=== PATIENT | male | born 1985 | race Asian ===

== ENCOUNTER 2022-05-25 16:23 | Emergency (ER) | payer SELFPAY ==
[~2022-05-25] VITALS: Ht 165.1 cm; Wt 59.0 kg
[2022-05-25] MEDS ORDERED: KETOROLAC TROMETHAMINE 30 MG/ML VIAL IV STA (16:41)
[2022-05-25] MEDS ORDERED: CYCLOBENZAPRINE HCL 10 MG TAB PO ONE (16:45)
[2022-05-25 17:05] LABS: BASOPHILS % 0.4 % (0.0-1.0); EOSINOPHILS # (AUTO) 0.1 (0.0-0.4); EOSINOPHILS % 1.5 % (0.0-6.0); HEMATOCRIT 47.3 % (38.2-49.6); HEMOGLOBIN 16.5 g/dL (14.0-18.0); LYMPHOCYTES # (AUTO) 2.9 (1.0-3.2); LYMPHOCYTES % 55.1 % (18.0-39.1); MEAN CORPUSCULAR HEMOGLOBIN 31.1 pg (28-32); MEAN CORPUSCULAR HGB CONC 34.9 g/dL (31-35); MEAN CORPUSCULAR VOLUME 89.2 fL (81-99); MONOCYTES # (AUTO) 0.6 (0.2-0.8); MONOCYTES % 10.4 % (4.4-11.3); NEUTROPHILS # (AUTO) 1.7 (2.1-6.9); NEUTROPHILS % 32.6 % (38.7-80.0); PLATELET COUNT 266 x10e3/uL (140-360); RED CELL DISTRIBUTION WIDTH 11.9 % (11.7-14.4)
[2022-05-25 17:18] LABS: CLARITY,URINE CLEAR (CLEAR); COLOR,URINE YELLOW (YELLOW); LEUKOCYTE ESTERASE ,URINE NEGATIVE (NEGATIVE); NITRITE,URINE NEGATIVE (NEGATIVE); PROTEIN,URINE DIPSTICK NEGATIVE (NEGATIVE)
[2022-05-25 17:19] LABS: KETONES,URINE NEGATIVE (NEGATIVE); URINE UROBILINOGEN 0.2 mg/dL (0.2 - 1)
[2022-05-25 17:24] LABS: BACTERIA,URINE RARE /HPF; RBC,URINE 0-5 /HPF (0-5); WBC,URINE (MAN) 0-5 /HPF (0-5)
[2022-05-25 17:26] LABS: ALBUMIN 4.1 g/dL (3.5-5.0); ANION GAP 13.6 mmol/L (8-16); CALCIUM 8.9 mg/dL (8.4-10.2); CREATININE, SERUM 0.86 mg/dL (0.72-1.25); POTASSIUM 3.6 mmol/L (3.5-5.1)
[2022-05-25] MEDS ORDERED: CYCLOBENZAPRINE10 MG PO (17:46)
[2022-05-25] MEDS ORDERED: MECLIZINE HCL12.5 MG PO (17:59)
== END 2022-05-25 18:03 | disposition home or self-care (01) ==
LOC: ER 16:31
DX: M54.50 Low back pain, unspecified (principal); S39.011A Strain of muscle, fascia and tendon of abdomen, initial encounter
CPT/HCPCS: 36415; 72100; 80053; 81001; 83690; 85025; 99283